=== PATIENT | male | born 1930 | race Caucasian/White ===

== ENCOUNTER 2018-05-16 16:16 | Observation (INO) | payer MEDICARE, OTHER ==
[~2018-05-16] VITALS: Ht 175.3 cm; Wt 68.5 kg
[2018-05-16 16:19] VITALS: BP 105/56; PULSE 84; RESP 15; TEMP 97.8; O2SAT 98
[2018-05-16] MEDS ORDERED: SODIUM CHLORIDE 0.9% FLUSH 10 ML FLUSH IVF PRN (16:45)
[2018-05-16] MEDS ORDERED: OMEP20TA93 PO (16:53)
[2018-05-16] MEDS ORDERED: INSU1INJ5 SQ (16:53)
[2018-05-16] MEDS ORDERED: ALLO100T PO (16:53)
[2018-05-16] MEDS ORDERED: LEVO75TA3 PO (16:53)
[2018-05-16] MEDS ORDERED: MIDO10TA PO (16:53)
[2018-05-16] MEDS ORDERED: GEMF600T PO (16:53)
[2018-05-16] MEDS ORDERED: ASPI81CH6 CHEW (16:53)
[2018-05-16] MEDS ORDERED: FLUD.1 PO (16:53)
[2018-05-16] MEDS ORDERED: QUET1TAB7 PO (16:53)
--- NOTE | 2018-05-16 17:05 | PD ---
HPI Chief Complaint: Syncope/Near-Syncope Time Seen by Provider: 16:43 Travel History International Travel<30 days: No Contact w/Intl Traveler<30days: No Traveled to known affect area: No History of Present Illness HPI 88-year-old male brought in by POV with his , with reports of 3 syncopal episodes today. Patient follows with Dr. Couch out of [place]. The tells me that he has been followed by him and worked up, including loop recorder, echocardiogram, etc. She is not sure if he has had tilt table testing. Patient has had syncopal episodes or near syncopal episodes for the past 3 months. In the beginning he actually passed out and broke his right hip. Patient had hip replacement and rehab. His says that his blood pressure issues have worsened since that time. Patient's states she has witnessed his [address] Couch's office was called and he recommended that he come here and have further evaluation and treatment. There was mention of a possible need for endocrine evaluation. Patient currently has no pain, shortness of breath, or significant edema. He is currently alert and oriented. Patient was recently started on midodrine 10 mg 3 times daily 4 days ago. He has allergies to zolpidem, tamsulosin, or NSAIDs. Patient has not been to this facility before. Records are going to be attempted to be gathered from [facility]. [facility] Past Medical History Diabetes: Yes Patient Takes Glucophage: No GERD: Yes Gout: Yes Thyroid Disease: Yes Tetanus Vaccination: < 5 Years Past Surgical History Cardiac Surgery: Yes Cholecystectomy: Yes Social History Alcohol Use: No Tobacco Use: No Substance Use: No Allergies-Medications (Allergen,Severity, Reaction): Coded Allergies: tamsulosin (Verified Allergy, Severe, 05/16/18) zolpidem (Verified Allergy, Severe, 05/16/18) NSAIDS (Non-Steroidal Anti-Inflamma (Verified Allergy, Unknown, 05/16/18) Reported Meds & Prescriptions Reported Meds & Active Scripts Active Reported Gemfibrozil 600 Mg Tab 600 Mg PO BIDAC Take 30 minutes prior to breakfast and dinner. Levemir Flextouch Pen Inj (Insulin Detemir) 300 unit/3 ML Pen 30 Units SQ Aspirin Low Dose (Aspirin) 81 Mg Chew 81 Mg CHEW DAILY Allopurinol 100 Mg Tab 100 Mg PO DAILY Levothyroxine (Levothyroxine Sodium) 75 Mcg Tab 75 Mcg PO DAILY Omeprazole 20 Mg Tab 20 Mg PO DAILY Midodrine 10 Mg Tab 10 Mg PO TID Quetiapine (Quetiapine Fumarate) 25 Mg Tab 25 Mg PO HS Review of Systems Except as stated in HPI: all other systems reviewed are Neg General / Constitutional: No: Fever Eyes: No: Visual changes HENT: Positive: Lightheadedness, No: Headaches Cardiovascular: No: Chest Pain or Discomfort Respiratory: No: Shortness of Breath Gastrointestinal: No: Abdominal Pain Genitourinary: No: Dysuria Musculoskeletal: No: Pain Skin: No Rash Neurologic: No: Weakness Psychiatric: No: Depression Endocrine: No: Polydipsia Hematologic/Lymphatic: No: Easy Bruising Physical Exam Narrative GENERAL: Patient is alert and oriented. He appears somewhat pale. He is otherwise unremarkable SKIN: Warm and dry. Increased pallor. Normal turgor. HEAD: Atraumatic. Normocephalic. EYES: Pupils equal and round. No scleral icterus. No injection or drainage. ENT: No nasal bleeding or discharge. Mucous membranes pink and moist. Pharynx is clear. Airways patent NECK: Trachea midline. No JVD. Supple and nontender. CARDIOVASCULAR: Regular rate and rhythm. No murmurs gallops or rubs appreciated. RESPIRATORY: No accessory muscle use. Clear to auscultation. Breath sounds equal bilaterally. GASTROINTESTINAL: Abdomen soft, non-tender, nondistended. Hepatic and splenic margins not palpable. MUSCULOSKELETAL: Extremities without clubbing, cyanosis, or edema. No obvious deformities. NEUROLOGICAL: Awake and alert. No obvious cranial nerve deficits. Motor grossly within normal limits. Five out of 5 muscle strength in the arms and legs. Normal speech. PSYCHIATRIC: Appropriate mood and affect; insight and judgment normal. Data Data Last Documented VS Vital Signs Date Time Temp Pulse Resp B/P (MAP) Pulse Ox O2 Delivery O2 Flow Rate FiO2 05/16/18 18:15 67 18 125/67 (86) 98 Room Air 05/16/18 16:19 97.8 Orders Orders Electrocardiogram (05/16/18 16:32) Complete Blood Count With Diff (05/16/18 16:32) Ckmb (Isoenzyme) Profile (05/16/18 16:32) Troponin I (05/16/18 16:32) Iv Access Insert/Monitor (05/16/18 16:32) Ecg Monitoring (05/16/18 16:32) Oxygen Administration (05/16/18 16:32) Oximetry (05/16/18 16:32) Magnesium (Mg) (05/16/18 16:44) B-Type Natriuretic Peptide (05/16/18 16:44) Ckmb (Isoenzyme) Profile (05/16/18 16:44) Troponin I (05/16/18 16:44) Act Partial Throm Time (Ptt) (05/16/18 16:44) Prothrombin Time / Inr (Pt) (05/16/18 16:44) Urinalysis - C+S If Indicated (05/16/18 16:44) Chest, Single Ap (05/16/18 16:44) Sodium Chloride 0.9% Flush (Ns Flush) (05/16/18 16:45) Orthostatic Vital Signs (05/16/18 16:44) Sodium Chlor 0.9% 1000 Ml Inj (Ns 1000 M (05/16/18 17:15) Basic Metabolic Panel (Bmp) (05/16/18 16:32) Labs Laboratory Tests Test 05/16/18 17:12 05/16/18 17:34 05/16/18 18:20 Prothrombin Time 10.9 SEC Prothromb Time International Ratio 1.1 RATIO Activated Partial Thromboplast Time 24.9 SEC Blood Urea Nitrogen 36 MG/DL Creatinine 2.01 MG/DL Random Glucose 140 MG/DL Calcium Level 9.2 MG/DL Sodium Level 141 MEQ/L Potassium Level 4.2 MEQ/L Chloride Level 106 MEQ/L Carbon Dioxide Level 27.8 MEQ/L Anion Gap 7 MEQ/L Estimat Glomerular Filtration Rate 32 ML/MIN Magnesium Level 1.6 MG/DL Total Creatine Kinase 36 U/L Troponin I LESS THAN 0.02 NG/ML B-Type Natriuretic Peptide 149 PG/ML Urine Color YELLOW Urine Turbidity HAZY Urine pH 5.0 Urine Specific [place] 1.018 Urine Protein 100 mg/dL Urine Glucose (UA) NEG mg/dL Urine Ketones NEG mg/dL Urine Occult Blood NEG Urine Nitrite NEG Urine Bilirubin NEG Urine Urobilinogen LESS THAN 2 mg/dL Urine Leukocyte Esterase NEG Urine WBC 2 /hpf Urine Squamous Epithelial Cells 6 /hpf Urine Bacteria RARE /hpf Urine Hyaline Casts 10 /lpf Urine Mucus FEW /lpf Microscopic Urinalysis Comment CULT NOT INDICATED White Blood Count 6.3 TH/MM3 Red Blood Count 4.21 MIL/MM3 Hemoglobin 13.0 GM/DL Hematocrit 39.1 % Mean Corpuscular Volume 93.0 FL Mean Corpuscular Hemoglobin 30.9 PG Mean Corpuscular Hemoglobin Concent 33.3 % Red Cell Distribution Width 16.1 % Platelet Count 177 TH/MM3 Mean Platelet Volume 8.3 FL Neutrophils (%) (Auto) 68.8 % Lymphocytes (%) (Auto) 19.4 % Monocytes (%) (Auto) 7.5 % Eosinophils (%) (Auto) 3.7 % Basophils (%) (Auto) 0.6 % Neutrophils # (Auto) 4.4 TH/MM3 Lymphocytes # (Auto) 1.2 TH/MM3 Monocytes # (Auto) 0.5 TH/MM3 Eosinophils # (Auto) 0.2 TH/MM3 Basophils # (Auto) 0.0 TH/MM3 CBC Comment DIFF FINAL Differential Comment MDM Medical Decision Making Medical Screen Exam Complete: Yes Emergency Medical Condition: Yes Differential Diagnosis Recurrent syncope. Vasovagal. Cardiac syndrome. Endocrine issue. Narrative Course Patient is currently stable at time of exam. Orthostatics are grossly positive. Labs ordered including CBC, CMP, cardiac panel, proBNP, magnesium, coagulation studies, and urinalysis. IV access is obtained and the patient is given 1000 mL of normal saline bolus. EKG is performed showing normal sinus rhythm without significant ST changes. Chest x-ray is ordered. Chest x-ray shows moderate bibasilar changes. CBC is unremarkable. Coagulation studies shows a PT of 10.9, INR is 1.1, APTT is 24.9. Chemistries are unremarkable except for a BUN of 36, with a creatinine of 2.01. I have no previous to compare, but patient has known renal insufficiency. Random glucose is 140, first troponin is less than 0.02. BNP is 149. Urinalysis shows 100 protein, otherwise unremarkable. Hospitalist is called for admission for orthostatic hypotension, syncope and collapse, and elevated creatinine. Previous records have been requested from [facility]. Diagnosis Primary Impression: Syncope and collapse Additional Impressions: Orthostatic hypotension Creatinine elevation Admitting Information Admitting Physician Requests: Admit Condition: Stable Ian Berger May 16, 2018 17:05
[2018-05-16] MEDS ORDERED: SODIUM CHLOR 0.9% 1000 ML INJ 1,000 ML IV ONE (17:15)
--- NOTE | 2018-05-16 17:21 | RADRPT ---
EXAM DATE: 05/16/2018 5:15 PM EDT AGE/SEX: 88 years / Male INDICATIONS: Syncope. Patient has passed out multiple times today. CLINICAL DATA: This is the patient's initial encounter. Patient reports that signs and symptoms have been present for 1 day and indicates a pain score of 0/10. MEDICAL/SURGICAL HISTORY: Gastroesophageal reflux disease. Diabetes mellitus type II. Cholecys tectomy. Loop recorder. COMPARISON: No prior exams available for comparison. FINDINGS: Moderate bibasilar parenchymal changes. Mild cardiomegaly. No pleural effusion or pneumothorax. The p ortion of the bony skeleton visualized is unremarkable. CONCLUSION: Moderate bibasilar changes. Electronically signed by: Jarret Gupta MD 05/16/2018 5:19 PM EDT
[2018-05-16 17:24] VITALS: BP_SYST 112; BP_SYST 144; BP_SYST 64; BP_DIAS 39; BP_DIAS 69; BP_DIAS 72; RESP 18; O2SAT 98
[2018-05-16 18:09] LABS: BACTERIA, URINE RARE /hpf; BILIRUBIN, URINE NEG (NEG); BLOOD, URINE NEG (NEG); GLUCOSE,URINE NEG (NEG); HYALINE CAST, URINE 10 /lpf (RARE); KETONE, URINE NEG (NEG); MUCUS URINE FEW /lpf (OCC); NITRITE,URINE NEG (NEG); SQUAMOUS EPITHELIAL CELL URINE 6 /hpf (0-5); URINE COLOR YELLOW (YELLW/STRAW); URINE LEUKOCYTE ESTERASE NEG (NEG)
[2018-05-16 18:11] LABS: MAGNESIUM 1.6 MG/DL (1.5-2.5)
[2018-05-16 18:13] LABS: INTERNATIONAL NORMALIZED RATIO 1.1 RATIO; PROTHROMBIN TIME - PATIENT 10.9 SEC (9.8-11.6)
[2018-05-16 18:15] VITALS: BP 125/67; PULSE 67; RESP 18; O2SAT 98
[2018-05-16 18:15] LABS: TROPONIN I LESS THAN 0.02 NG/ML (0.02-0.05)
[2018-05-16 18:35] LABS: BICARBONATE 27.8 MEQ/L (21.0-32.0); CALCIUM 9.2 MG/DL (8.5-10.1); CREATININE 2.01 MG/DL (0.60-1.30)
[2018-05-16 18:40] LABS: AUTOMATED NEUTROPHIL # 4.4 TH/MM3 (1.8-7.7); BASOPHIL % 0.6 % (0.0-2.0); EOSINOPHIL # 0.2 TH/MM3 (0-0.4); EOSINOPHIL % 3.7 % (0.0-4.0); HEMATOCRIT 39.1 % (39.0-51.0); LYMPH % 19.4 % (9.0-44.0); LYMPHOCYTE # 1.2 TH/MM3 (1.0-4.8); MEAN CORPUSCULAR HEMOGLOBIN 30.9 PG (27.0-34.0); MEAN CORPUSCULAR HGB CONC 33.3 % (32.0-36.0); MEAN PLATELET VOLUME 8.3 FL (7.0-11.0); MONO % 7.5 % (0.0-8.0); MONOCYTE # 0.5 TH/MM3 (0-0.9); NEUT % 68.8 % (16.0-70.0); PLATELET COUNT 177 TH/MM3 (150-450); RED BLOOD COUNT 4.21 MIL/MM3 (4.50-5.90); RED CELL DISTRIBUTION WIDTH 16.1 % (11.6-17.2); WHITE BLOOD COUNT 6.3 TH/MM3 (4.0-11.0)
--- NOTE | 2018-05-16 19:30 | EKG ---
Date Performed: 05/16/2018 Time Performed: 16:49:57 PTAGE: 88 years EKG: Sinus rhythm POSSIBLE ANTERIOR MYOCARDIAL INFARCTION ABNORMAL ECG NO PREVIOUS TRACING DOCTOR: Domenico Portillo Interpretating Date/Time 05/16/2018 19:28:19
[2018-05-16 20:27] LABS: TROPONIN I LESS THAN 0.02 NG/ML (0.02-0.05)
[2018-05-16] MEDS ORDERED: ACETAMINOPHEN 325 MG TAB PO PRN (20:45)
[2018-05-16] MEDS ORDERED: SODIUM CHLORIDE 0.9% FLUSH 10 ML FLUSH IV FLUSH PRN (20:45)
[2018-05-16] MEDS ORDERED: NALOXONE HCL 0.4 MG/ML AMP IV PUSH PRN (20:45)
[2018-05-16] MEDS ORDERED: DEXTROSE 50% IN WATER 50 ML VIAL(D50) IV PUSH PRN (20:45)
[2018-05-16] MEDS ORDERED: BISACODYL 10 MG SUPP RECTAL PRN (20:45)
[2018-05-16] MEDS ORDERED: GLUCAGON 1 MG/ML VIAL OTHER PRN (20:45)
[2018-05-16] MEDS ORDERED: ONDANSETRON HCL 4 MG/2 ML VIAL IVP PRN (20:45)
[2018-05-16] MEDS ORDERED: LACTULOSE SYRUP 20 GM/30 ML CUP PO PRN (20:45)
[2018-05-16] MEDS ORDERED: SENNOSIDES 8.6 MG TAB PO PRN (20:45)
[2018-05-16] MEDS ORDERED: MAGNESIUM HYDROXIDE SUSP 30 ML CUP PO PRN (20:45)
[2018-05-16] MEDS ORDERED: INSULIN DETEMIR 100 UNITS/ML VIAL SQ SCH (21:00)
[2018-05-16] MEDS: SODIUM CHLORIDE 0.9% FLUSH 10 ML FLUSH IV FLUSH SCH (21:00)
[2018-05-16] MEDS: INSULIN ASPART SUPPLEMENTAL SCALE SQ SCH (21:00)
[2018-05-16] MEDS ORDERED: QUEtiapine FUMARATE 25 MG TAB PO SCH (21:00)
[2018-05-16] MEDS: SODIUM CHLOR 0.9% 1000 ML INJ 1,000 ML IV SCH (21:34)
[2018-05-16] MEDS: DOCUSATE SODIUM 50 MG/SENNA 8.6 MG TAB PO SCH (21:34)
[2018-05-16] MEDS: HEPARIN SODIUM - SQ 10,000 UNITS/ML VIAL SQ SCH (21:35)
--- NOTE | 2018-05-16 21:47 | HHI.HP ---
HPI Service [facility] Primary Care Physician Non-Staff Admission Diagnosis Syncopy/Orthostatic/Elevated Creatinine Diagnoses: Travel History International Travel<30 Days: No Contact w/Intl Traveler <30 Da: No Traveled to Known Affected Are: No History of Present Illness 88-year-old male with a past medical history significant for diabetes mellitus, hypothyroidism, hypotension and GERD presents the emergency department for evaluation of multiple syncopal episodes. The patient reports today he had 3 episodes of syncope but first 2 were of initially upon standing and the third was as he was walking with his walker. The patient has had multiple syncopal episodes over the past several weeks including one a few weeks ago where he was walking to the front door and lost consciousness and another 1 week later where he fell and broke his right hip. The patient has had significant workup for his syncopal events including having a loop recorder, continuous EKG monitoring and several other tests done at the hospital in [place]. He denies any chest pain or shortness of breath. No abdominal pain. Denies any head trauma. No loss of bowel or bladder during the episodes. No nausea/vomiting/diarrhea. No fever/chills. No lateralizing signs/symptoms. Review of Systems Except as stated in HPI: all other systems reviewed are Neg Past Family Social History Past Medical History Diabetes mellitus GERD Hypothyroidism Hypertension Past Surgical History Cholecystectomy Reported Medications Reported Meds & Active Scripts Active Reported Gemfibrozil 600 Mg Tab 600 Mg PO BIDAC Take 30 minutes prior to breakfast and dinner. Levemir Flextouch Pen Inj (Insulin Detemir) 300 unit/3 ML Pen 30 Units SQ Aspirin Low Dose (Aspirin) 81 Mg Chew 81 Mg CHEW DAILY Allopurinol 100 Mg Tab 100 Mg PO DAILY Levothyroxine (Levothyroxine Sodium) 75 Mcg Tab 75 Mcg PO DAILY Omeprazole 20 Mg Tab 20 Mg PO DAILY Midodrine 10 Mg Tab 10 Mg PO TID Quetiapine (Quetiapine Fumarate) 25 Mg Tab 25 Mg PO HS Allergies: Coded Allergies: tamsulosin (Verified Allergy, Severe, 05/16/18) zolpidem (Verified Allergy, Severe, 05/16/18) NSAIDS (Non-Steroidal Anti-Inflamma (Verified Allergy, Unknown, 05/16/18) Family History Negative for CAD/DM Social History Denies alcohol, tobacco and illicit drugs Physical Exam Vital Signs Vital Signs Date Time Temp Pulse Resp B/P (MAP) Pulse Ox O2 Delivery O2 Flow Rate FiO2 05/16/18 21:36 05/16/18 18:15 67 18 125/67 (86) 98 Room Air 05/16/18 17:24 76 144/72 (96) 83 112/69 (83) 85 64/39 (47) 05/16/18 17:24 18 98 Room Air 05/16/18 16:19 97.8 84 15 105/56 (72) 98 Physical Exam GENERAL: male sitting up in bed SKIN: No rashes, ecchymoses or lesions. Cool and dry. HEAD: Atraumatic. Normocephalic. No temporal or scalp tenderness. EYES: Pupils equal round and reactive. Extraocular motions intact. No scleral icterus. No injection or drainage. ENT: Nose without bleeding, purulent drainage or septal hematoma. Throat without erythema, tonsillar hypertrophy or exudate. Uvula midline. Airway patent. NECK: Trachea midline. No JVD or lymphadenopathy. Supple, nontender, no meningeal signs. CARDIOVASCULAR: Regular rate and rhythm without murmurs, gallops, or rubs. RESPIRATORY: Clear to auscultation. Breath sounds equal bilaterally. No wheezes , rales, or rhonchi. GASTROINTESTINAL: Abdomen soft, non-tender, nondistended. No hepato-splenomegaly , or palpable masses. No guarding. MUSCULOSKELETAL: Extremities without clubbing, cyanosis, or edema. No joint tenderness, effusion, or edema noted. No calf tenderness. NEUROLOGICAL: Awake and alert. Cranial nerves II through XII intact. Motor and sensory grossly within normal limits. Five out of 5 muscle strength in all muscle groups. Normal speech. Laboratory Laboratory Tests Test 05/16/18 17:12 05/16/18 17:34 05/16/18 18:20 05/16/18 19:30 Prothrombin Time 10.9 Prothromb Time International Ratio 1.1 Activated Partial Thromboplast Time 24.9 Blood Urea Nitrogen 36 Creatinine 2.01 Random Glucose 140 Calcium Level 9.2 Sodium Level 141 Potassium Level 4.2 Chloride Level 106 Carbon Dioxide Level 27.8 Anion Gap 7 Estimat Glomerular Filtration Rate 32 Magnesium Level 1.6 Total Creatine Kinase 36 32 Troponin I LESS THAN 0.02 LESS THAN 0.02 B-Type Natriuretic Peptide 149 Urine Color YELLOW Urine Turbidity HAZY Urine pH 5.0 Urine Specific [place] 1.018 Urine Protein 100 Urine Glucose (UA) NEG Urine Ketones NEG Urine Occult Blood NEG Urine Nitrite NEG Urine Bilirubin NEG Urine Urobilinogen LESS THAN 2 Urine Leukocyte Esterase NEG Urine WBC 2 Urine Squamous Epithelial Cells 6 Urine Bacteria RARE Urine Hyaline Casts 10 Urine Mucus FEW Microscopic Urinalysis Comment CULT NOT INDICATED White Blood Count 6.3 Red Blood Count 4.21 Hemoglobin 13.0 Hematocrit 39.1 Mean Corpuscular Volume 93.0 Mean Corpuscular Hemoglobin 30.9 Mean Corpuscular Hemoglobin Concent 33.3 Red Cell Distribution Width 16.1 Platelet Count 177 Mean Platelet Volume 8.3 Neutrophils (%) (Auto) 68.8 Lymphocytes (%) (Auto) 19.4 Monocytes (%) (Auto) 7.5 Eosinophils (%) (Auto) 3.7 Basophils (%) (Auto) 0.6 Neutrophils # (Auto) 4.4 Lymphocytes # (Auto) 1.2 Monocytes # (Auto) 0.5 Eosinophils # (Auto) 0.2 Basophils # (Auto) 0.0 CBC Comment DIFF FINAL Differential Comment Result Diagram: 05/16/18 1820 05/16/18 1712 Caprini VTE Risk Assessment Caprini VTE Risk Assessment: Mod/High Risk (score >= 2) Caprini Risk Assessment Model Point Value = 1 Point Value = 2 Point Value = 3 Point Value = 5 Age 41-60 Minor surgery BMI > 25 kg/m2 Swollen legs Varicose veins or History of unexplained or recurrent spontaneous Oral contraceptives or hormone replacement Sepsis (< 1 month) Serious lung disease, including pneumonia (< 1 month) Abnormal pulmonary function Acute myocardial infarction Congestive heart failure (< 1 month) History of inflammatory bowel disease Medical patient at bed rest Age 61-74 Arthroscopic surgery Major open surgery (> 45 min) Laparoscopic surgery (> 45 min) Malignancy Confined to bed (> 72 hours) Immobilizing plaster cast Central venous access Age >= 75 History of VTE Family history of VTE Factor V Leiden Prothrombin [id number] Lupus anticoagulant Anticardiolipin antibodies Elevated serum homocysteine Heparin-induced thrombocytopenia Other congenital or acquired thrombophilia Stroke (< 1 month) Elective arthroplasty Hip, pelvis, or leg fracture Acute spinal cord injury (< 1 month) Prophylaxis Regimen Total Risk Factor Score Risk Level Prophylaxis Regimen 0-1 Low Early ambulation 2 Moderate Order ONE of the following: *Sequential Compression Device (SCD) *Heparin 5000 units SQ BID 3-4 Higher Order ONE of the following medications: *Heparin 5000 units SQ TID *Enoxaparin/Lovenox 40 mg SQ daily (WT < 150 kg, CrCl > 30 mL/min) *Enoxaparin/Lovenox 30 mg SQ daily (WT < 150 kg, CrCl > 10-29 mL/min) *Enoxaparin/Lovenox 30 mg SQ BID (WT < 150 kg, CrCl > 30 mL/min) AND/OR *Sequential Compression Device (SCD) 5 or more Highest Order ONE of the following medications: *Heparin 5000 units SQ TID (Preferred with Epidurals) *Enoxaparin/Lovenox 40 mg SQ daily (WT < 150 kg, CrCl > 30 mL/min) *Enoxaparin/Lovenox 30 mg SQ daily (WT < 150 kg, CrCl > 10-29 mL/min) *Enoxaparin/Lovenox 30 mg SQ BID (WT < 150 kg, CrCl > 30 mL/min) AND *Sequential Compression Device (SCD) Assessment and Plan Assessment and Plan Assessment/plan: 1. Syncope Patient has undergone extensive workup including continuous EKG monitoring for 2 weeks with his technical document writer and the loop recorder which was just recently read , both of which were within normal limits. He also underwent other testing at the hospital in [place], records have been requested The patient was started on Midodrine, which we will continue Patient's vital signs significant for orthostatic hypotension ACS rule out pending IV fluid hydration 2. Diabetes mellitus Heart healthy, diabetic diet Continue home Levemir at half dosing to avoid hypoglycemia Sliding-scale insulin Monitor blood glucose 3. Hypothyroidism/GERD Continue home medications FEN Heart healthy, diabetic diet NS at 84 cc/hour Electrolytes: Monitor and replete as needed Heparin Sherrie Meza MD May 16, 2018 21:47
[2018-05-16 23:02] VITALS: BP 113/56; PULSE 78; RESP 17; TEMP 98.5; O2SAT 93
[2018-05-17 00:16] VITALS: PULSE 63
[2018-05-17 00:23] VITALS: BP 131/68; PULSE 65; RESP 16; TEMP 97.8; O2SAT 95
[2018-05-17 05:09] LABS: AUTOMATED NEUTROPHIL # 2.9 TH/MM3 (1.8-7.7); BASOPHIL % 0.8 % (0.0-2.0); EOSINOPHIL # 0.3 TH/MM3 (0-0.4); EOSINOPHIL % 5.9 % (0.0-4.0); HEMATOCRIT 39.3 % (39.0-51.0); HEMOGLOBIN 13.1 GM/DL (13.0-17.0); LYMPH % 29.1 % (9.0-44.0); LYMPHOCYTE # 1.5 TH/MM3 (1.0-4.8); MEAN CELL VOLUME 92.8 FL (80.0-100.0); MEAN CORPUSCULAR HEMOGLOBIN 30.9 PG (27.0-34.0); MEAN CORPUSCULAR HGB CONC 33.3 % (32.0-36.0); MEAN PLATELET VOLUME 8.5 FL (7.0-11.0); MONO % 7.9 % (0.0-8.0); MONOCYTE # 0.4 TH/MM3 (0-0.9); NEUT % 56.3 % (16.0-70.0); PLATELET COUNT 148 TH/MM3 (150-450); RED BLOOD COUNT 4.24 MIL/MM3 (4.50-5.90); RED CELL DISTRIBUTION WIDTH 15.3 % (11.6-17.2); WHITE BLOOD COUNT 5.2 TH/MM3 (4.0-11.0)
[2018-05-17 05:15] VITALS: BP 134/71; PULSE 68; RESP 18; TEMP 97.7; O2SAT 95
[2018-05-17 05:21] LABS: BICARBONATE 23.5 MEQ/L (21.0-32.0); BLOOD UREA NITROGEN 32 MG/DL (7-18); CALCIUM 8.7 MG/DL (8.5-10.1); CHLORIDE 110 MEQ/L (98-107); GLOMERULAR FILTRATION RATE 48 ML/MIN (>89); GLUCOSE,RANDOM 82 MG/DL (74-106); SODIUM (NA) 143 MEQ/L (136-145)
[2018-05-17] MEDS ORDERED: LEVOTHYROXINE SODIUM 75 MCG TAB PO SCH (06:00)
[2018-05-17 06:38] LABS: TROPONIN I LESS THAN 0.02 NG/ML (0.02-0.05)
[2018-05-17] MEDS ORDERED: GEMFIBROZIL 600 MG TAB PO SCH (07:00)
[2018-05-17] MEDS: INSULIN ASPART SUPPLEMENTAL SCALE SQ SCH (08:00)
[2018-05-17 08:37] VITALS: BP 144/69; PULSE 68; RESP 16; TEMP 97.7; O2SAT 95
[2018-05-17] MEDS: SODIUM CHLORIDE 0.9% FLUSH 10 ML FLUSH IV FLUSH SCH (09:00)
[2018-05-17] MEDS ORDERED: PANTOPRAZOLE SOD 20 MG DELAYED RELEASE TAB PO SCH (09:00)
[2018-05-17] MEDS: HEPARIN SODIUM - SQ 10,000 UNITS/ML VIAL SQ SCH (09:00)
[2018-05-17] MEDS: DOCUSATE SODIUM 50 MG/SENNA 8.6 MG TAB PO SCH (09:00)
[2018-05-17] MEDS ORDERED: MIDODRINE 5 MG TAB PO SCH (09:00)
[2018-05-17] MEDS ORDERED: ASPIRIN 81 MG CHEW TAB CHEW SCH (09:00)
[2018-05-17] MEDS: SODIUM CHLOR 0.9% 1000 ML INJ 1,000 ML IV SCH (09:01)
[2018-05-17] MEDS ORDERED: FLUD.1 PO (11:36)
--- NOTE | 2018-05-17 11:36 | HHI.DS ---
Discharge Summary Admission Date May 16, 2018 at 20:41 Discharge Date: May 17, 2018 Admitting Diagnosis Syncopy/Orthostatic/Elevated Creatinine (1) Insulin dependent diabetes mellitus ICD Code: E11.9 - Type 2 diabetes mellitus without complications; Z79.4 - exterminator termite (current) use of insulin Procedures none Brief History - From Admission 88-year-old male with a past medical history significant for diabetes mellitus, hypothyroidism, hypotension and GERD presents the emergency department for evaluation of multiple syncopal episodes. The patient reports today he had 3 episodes of syncope but first 2 were of initially upon standing and the third was as he was walking with his walker. The patient has had multiple syncopal episodes over the past several weeks including one a few weeks ago where he was walking to the front door and lost consciousness and another 1 week later where he fell and broke his right hip. The patient has had significant workup for his syncopal events including having a loop recorder, continuous EKG monitoring and several other tests done at the hospital in [place]. He denies any chest pain or shortness of breath. No abdominal pain. Denies any head trauma. No loss of bowel or bladder during the episodes. No nausea/vomiting/diarrhea. No fever/chills. No lateralizing signs/symptoms. CBC/BMP: 05/17/18 0420 05/17/18 0420 Significant Findings Laboratory Tests Test 05/16/18 17:12 05/16/18 17:34 05/16/18 18:20 05/16/18 19:30 Blood Urea Nitrogen 36 MG/DL (7-18) Creatinine 2.01 MG/DL (0.60-1.30) Random Glucose 140 MG/DL (74-106) Estimat Glomerular Filtration Rate 32 ML/MIN (>89) Total Creatine Kinase 36 U/L (39-308) 32 U/L (39-308) Troponin I LESS THAN 0.02 NG/ML LESS THAN 0.02 NG/ML B-Type Natriuretic Peptide 149 PG/ML (0-100) Urine Turbidity HAZY (CLEAR) Urine Protein 100 mg/dL (NEG-TRACE) Urine Bacteria RARE /hpf (NONE) Urine Mucus FEW /lpf (OCC) Red Blood Count 4.21 MIL/MM3 (4.50-5.90) Test 05/17/18 04:20 Red Blood Count 4.24 MIL/MM3 (4.50-5.90) Platelet Count 148 TH/MM3 (150-450) Eosinophils (%) (Auto) 5.9 % (0.0-4.0) Blood Urea Nitrogen 32 MG/DL (7-18) Creatinine 1.40 MG/DL (0.60-1.30) Chloride Level 110 MEQ/L (98-107) Estimat Glomerular Filtration Rate 48 ML/MIN (>89) Troponin I LESS THAN 0.02 NG/ML Imaging Last Impressions Chest X-Ray 05/16/18 1644 Signed Impressions: CONCLUSION: Moderate bibasilar changes. PE at Discharge GENERAL: male sitting up in bed CARDIOVASCULAR: Regular rate and rhythm without murmurs, gallops, or rubs. RESPIRATORY: Clear to auscultation. Breath sounds equal bilaterally. No wheezes , rales, or rhonchi. GASTROINTESTINAL: Abdomen soft, non-tender, nondistended. No hepato-splenomegaly , or palpable masses. No guarding. MUSCULOSKELETAL: Extremities without clubbing, cyanosis, or edema. No joint tenderness, effusion, or edema noted. No calf tenderness. NEUROLOGICAL: Awake and alert. Cranial nerves II through XII intact. Motor and sensory grossly within normal limits. Five out of 5 muscle strength in all muscle groups. Normal speech. Pt update on day of discharge Patient is in nad. No n/v/d/c. Denies chest pain or sob. No lightheadedness. Says she follows with his cardiology Dr Says he has a loop recorder. Wants to go home. Hospital Course 1. Syncope 2/2 orthostatic hypotension Patient has undergone extensive workup including continuous EKG monitoring for 2 weeks with his operator and the loop recorder which was just recently read , both of which were within normal limits. He also underwent other testing at the hospital in [place], records have been requested The patient was started on Midodrine, which we will continue Add fludrocortisone as patient not controlled on midodrine. patient has a loop recorder and is undergoing work up with his operator in [facility]. Says he has an appointment in 3 days with his cardiology Says he has done doppler of carotids but no 2D ECHO. Patient can have 2 D ECHO as OP. Patient imprpved and wants to go home he will follow up closely with his cardiology Dr. Tiffany banuelos Patient's vital signs significant for orthostatic hypotension Neg trops x 3 patient is asymptomatic has no chest pain IV fluid hydration 2. Diabetes mellitus Heart healthy, diabetic diet Continue home Levemir at half dosing to avoid hypoglycemia Sliding-scale insulin Monitor blood glucose 3. Hypothyroidism/GERD Continue home medications FEN Heart healthy, diabetic diet NS at 84 cc/hour Electrolytes: Monitor and replete as needed Heparin Improved DC home in stable condition to follow up as OP with PCP and consultants. Pt Condition on Discharge: Stable Discharge Disposition: Disch w/ Home Health Serv Discharge Time: > 30 minutes Discharge Instructions DIET: Follow Instructions for: As Tolerated, No Restrictions, Diabetic Diet Activities you can perform: Regular-No Restrictions Follow up Referrals: Cardiology - 2-3 Days PCP Follow-up - 2-3 Days New Orders: 2D ECHO - 2-3 Days New Medications: Fludrocortisone (Fludrocortisone) 0.1 Mg Tab 0.1 MG PO DAILY for orthostatic hypotention , #30 TAB 0 Refills Continued Medications: Allopurinol (Allopurinol) 100 Mg Tab 100 MG PO DAILY for Gout, #30 TAB 0 Refills Aspirin (Aspirin Low Dose) 81 Mg Chew 81 MG CHEW DAILY, TAB 0 Refills Gemfibrozil (Gemfibrozil) 600 Mg Tab 600 MG PO BIDAC, #60 TAB 0 Refills Take 30 minutes prior to breakfast and dinner. Insulin Detemir Inj (Levemir Flextouch Pen Inj) 300 unit/3 ML Pen 30 UNITS SQ for Blood Sugar Management, PEN 0 Refills Levothyroxine (Levothyroxine) 75 Mcg Tab 75 MCG PO DAILY for Thyroid, #30 TAB 0 Refills Midodrine (Midodrine) 10 Mg Tab 10 MG PO TID for Control Low Blood Pressure, #90 TAB 0 Refills Omeprazole (Omeprazole) 20 Mg Tab 20 MG PO DAILY, #30 TAB 0 Refills Quetiapine (Quetiapine) 25 Mg Tab 25 MG PO HS, #30 TAB 0 Refills Nikki Gooden MD May 17, 2018 11:36
--- NOTE | 2018-05-17 11:38 | HHI.FF ---
Face to Face Verification Diagnosis: (1) Insulin dependent diabetes mellitus (2) Orthostatic hypotension (3) Syncope and collapse (4) Creatinine elevation Physical Therapy Order: Evaluate and Treat Home Health Nursing Order: Medical education Signs/symptoms of disease process Medication education-adverse effect Nursing assessment with vital signs I have seen patient Fredy EnglandJr on 05/17/18. My clinical findings support the need for the requested home health care services because: Ltd mobility - disease progression I certify that my clinical findings support that this patient is homebound because: Post-op weakness Unsteady gait/balance Nikki Gooden MD May 17, 2018 11:38
[2018-05-17 11:50] VITALS: BP 160/77; PULSE 68; RESP 14; TEMP 97.7; O2SAT 95
[2018-05-17] MEDS ORDERED: FLUDROCORTISONE ACETATE 0.1 MG TAB PO ONE (12:00)
--- NOTE | 2018-05-17 13:30 | EKG ---
Date Performed: 05/17/2018 Time Performed: 01:49:22 PTAGE: 88 years EKG: Sinus rhythm WITH FIRST DEGREE AV BLOCK BORDERLINE LEFT AXIS DEVIATION ABNORMAL ECG No significant change from pr ior electrocardiogram. PREVIOUS TRACING : 05/16/2018 16.49 DOCTOR: Domenico Portillo Interpretating Date/Time 05/17/2018 13:30:21
[2018-05-18] MEDS ORDERED: FLUDROCORTISONE ACETATE 0.1 MG TAB PO SCH (09:00)
--- NOTE | 2018-05-18 21:52 | EKG ---
Date Performed: 05/17/2018 Time Performed: 08:44:16 PTAGE: 88 years EKG: Sinus rhythm NORMAL ECG PREVIOUS TRACING : 05/17/2018 01.49 Since the previous tracing, no significant change noted DOCTOR: Navya Nails Interpretating Date/Time 05/18/2018 21:49:54
== END 2018-05-17 14:26 | disposition home or self-care (01) ==
LOC: NEPC 16:16 → NEDA 19:02 → UNDOADMIN 19:02 → NEDA 20:41 → INTOOBSV 20:41 → NEPFCDU 21:29
PROVIDERS: ADMIT Hospitalist; ATTEND Hospitalist
DX: R55 Syncope and collapse (principal); E11.9 Type 2 diabetes mellitus without complications; E07.9 Disorder of thyroid, unspecified; I10 Essential (primary) hypertension; R94.31 Abnormal electrocardiogram [ECG] [EKG]; E03.9 Hypothyroidism, unspecified; K21.9 Gastro-esophageal reflux disease without esophagitis; Z79.4 Long term (current) use of insulin; Z96.649 Presence of unspecified artificial hip joint
CPT/HCPCS: 71045; 80048; 81001; 82550; 82948; 83735; 83880; 84484; 85025; 85610; 85730; 93005; 96360; 96361; 96372; 97162; 99285; G0378; G8987; G8988; J1644; J7030